=== PATIENT | female | born 1990 | race Two or more races ===

== ENCOUNTER 2021-10-08 11:52 | Emergency (ER) | payer SELFPAY ==
[~2021-10-08] VITALS: Ht 170.2 cm; Wt 72.6 kg
--- NOTE | 2021-10-08 12:26 | NUR ---
DAVID QUINTANILLA AT PT'S BEDSIDE
--- NOTE | 2021-10-08 12:27 | NUR ---
PT BIBSELF FROM HOME C/O DIFFUSE ABDOMINAL PAIN, INTERMITTENT W/ NAUSEA SINCE 09/28 STS "SMOKES MARIJUANA FOR PAIN CONTROL". A/OX4. TOLERATING R/A WELL.
--- NOTE | 2021-10-08 12:47 | NUR ---
SERVICE ENGINE REPAIRER AT PT'S BEDSIDE COLLECTED URINE SAMPLE AND SENT TO LAB
[2021-10-08 12:55] LABS: BASOPHILS # (AUTO) 0.2 K/uL (0.0-0.2); BASOPHILS % (AUTO) 2.4 % (0.0-2.0); EOSINOPHILS % (AUTO) 0.8 % (0.0-6.0); HEMATOCRIT 43 % (33-45); HEMOGLOBIN 14.5 g/dL (11.5-14.8); LYMPHOCYTES # (AUTO) 0.8 K/uL (0.8-4.8); LYMPHOCYTES % (AUTO) 8.6 % (20.0-44.0); MEAN CORPUSCULAR HGB CONC 34 g/dl (31.0-36.0); MEAN CORPUSCULAR VOLUME 86 fL (82-100); MONOCYTES # (AUTO) 0.3 K/uL (0.1-1.30); MONOCYTES % (AUTO) 3.2 % (2.0-12.0); NEUTROPHILS # (AUTO) 7.9 K/uL (1.8-8.9); PLATELET COUNT (AUTO) 344 K/uL (150-450); RED BLOOD CELL COUNT(AUTO) 5.02 MIL/uL (4.0-5.2); WHITE BLOOD COUNT (AUTO) 9.3 K/uL (4.3-11.0)
[2021-10-08 13:08] LABS: ALBUMIN 4.2 g/dL (3.4-5.0); BILIRUBIN,DIRECT 0.1 mg/dL (0.0-0.2); BILIRUBIN,TOTAL 0.5 mg/dL (0.2-1.0); CREATININE 0.8 mg/dL (0.6-1.3); POTASSIUM 3.9 mmol/L (3.5-5.1); TOTAL PROTEIN, SERUM 8.3 g/dL (6.4-8.2)
[2021-10-08] MEDS ORDERED: FAMO-131 PO (14:20)
[2021-10-08 14:32] VITALS: BP 129/80
--- NOTE | 2021-10-08 14:32 | NUR ---
Patient discharged to home in stable condition. Written and verbal after care instructions given. Patient verbalizes understanding of instruction.
== END 2021-10-08 14:33 | disposition home or self-care (01) ==
LOC: ER 11:54
DX: R10.13 Epigastric pain (principal); Z79.899 Other long term (current) drug therapy
CPT/HCPCS: 36415; 80048-TC; 80076-TC; 83690-TC; 84702-TC; 85025-TC